=== PATIENT | female | born 2000 | race Caucasian/White ===

== ENCOUNTER 2021-05-22 17:32 | Emergency (ER) | payer OTHER ==
[~2021-05-22] VITALS: Ht 167.6 cm; Wt 65.9 kg
[2021-05-22] MEDS ORDERED: MULTTAB20 PO (17:39)
[2021-05-22 20:11] LABS: BASO # 0.1 10^3/uL (0.0-0.2); BASO % 0.6 % (0.0-1.0); EOS # 0.1 10^3/uL (0.0-0.5); EOS % 1.3 % (0.0-3.0); HEMATOCRIT 38.5 % (36.0-47.0); HEMOGLOBIN 12.6 g/dl (12.0-15.5); LYMPH # 2.9 10^3/uL (1.5-5.0); LYMPH % 28.8 % (24.0-44.0); MEAN CORPUSCULAR HEMOGLOBIN 27.4 pg (27.0-33.0); MEAN CORPUSCULAR HGB CONC 32.7 g/dl (32.0-36.5); MEAN CORPUSCULAR VOLUME 83.7 fl (80.0-96.0); MONO # 0.6 10^3/uL (0.0-0.8); MONO % 6.1 % (2.0-8.0); NEUTROPHILS # 6.4 10^3/uL (1.5-8.5); NEUTROPHILS % 62.9 % (36.0-66.0); PLATELET COUNT, AUTOMATED 217 10^3/uL (150-450); WHITE BLOOD COUNT 10.2 10^3/uL (4.0-10.0)
[2021-05-22 20:32] LABS: BLOOD UREA NITROGEN 10 MG/DL (7-18); CALCIUM LEVEL 9.4 MG/DL (8.5-10.1); CARBON DIOXIDE LEVEL 25 MEQ/L (21-32); CHLORIDE LEVEL 105 MEQ/L (98-107); CREATININE FOR GFR 0.57 MG/DL (0.55-1.30); GLUCOSE, FASTING 75 MG/DL (70-100); POTASSIUM SERUM 4.2 MEQ/L (3.5-5.1); SODIUM LEVEL 137 MEQ/L (136-145)
[2021-05-22 22:29] LABS: HCG, SERUM QUANTITATIVE 170911 MIU/ML
[2021-05-22 23:49] LABS: GC DNA AMPLIFICATION NEGATIVE (NEGATIVE)
[2021-05-23 00:02] VITALS: BP 124/62
== END 2021-05-23 00:25 | disposition home or self-care (01) ==
LOC: M ED 17:32
DX: R10.9 Unspecified abdominal pain (principal); O99.011 Anemia complicating pregnancy, first trimester; Z3A.13 13 weeks gestation of pregnancy

== ENCOUNTER 2021-12-01 16:41 | Outpatient (CLI) | payer OTHER ==
[~2021-12-01] VITALS: Ht 167.6 cm; Wt 83.3 kg
[~2021-12-01 16:41] MED LIST: METR-265 PO; MULTTAB20 PO
[2021-12-01 17:06] VITALS: BP 135/67
[2021-12-01] MEDS ORDERED: HOME MED LIST COMPLETE! XX SCH (18:05)
[2021-12-01] MEDS ORDERED: VALT1TAB PO (18:06)
[2021-12-01] MEDS ORDERED: metroNIDAZOLE 70 GM VAGINAL GEL PV SCH (21:00)
== END 2021-12-01 19:04 | disposition home or self-care (01) ==
LOC: M LDO 16:41
PROVIDERS: ATTEND Registered Nurse
DX: O23.593 Infection of other part of genital tract in pregnancy, third trimester (principal); O48.0 Post-term pregnancy; Z3A.40 40 weeks gestation of pregnancy
CPT/HCPCS: 59025; G0463

== ENCOUNTER 2021-12-07 09:05 | Inpatient (IN) | payer OTHER ==
[~2021-12-07] VITALS: Ht 167.6 cm; Wt 83.3 kg
[2021-12-07] VITALS (17 sets, daily range): BP systolic 118–146; BP diastolic 63–91
[~2021-12-07 09:05] MED LIST changes: +VALT1TAB PO
[2021-12-07] MEDS ORDERED: CARBOPROST TROMETHAMINE 250 MCG/ML AMP IM PRN (10:50)
[2021-12-07] MEDS ORDERED: OXYTOCIN DRIP 30 UNITS in IV 1 EA IV PRN ×6 (10:50)
[2021-12-07] MEDS ORDERED: METHYLERGONOVINE MALEATE 0.2 MG/ML VIAL (J2210) IM PRN (10:50)
[2021-12-07] MEDS ORDERED: OXYTOCIN INJ 10 UNITS/ML VIAL (J2590) IM PRN (10:50)
[2021-12-07] MEDS ORDERED: OXYTOCIN INJ 10 UNITS/ML VIAL (J2590) IV PRN (10:50)
[2021-12-07] MEDS ORDERED: LR 1,000 ML IV SCH ×2 (10:50)
[2021-12-07] MEDS ORDERED: LACTATED RINGER'S 1000 ML IV STA (10:50)
[2021-12-07] MEDS ORDERED: LIDOCAINE 1% MDV 20ML VIAL INFIL PRN (10:50)
[2021-12-07] MEDS ORDERED: TRANEXAMIC ACID INJection 1,000 MG in NS 100 ML IV PRN (10:50)
[2021-12-07] MEDS ORDERED: OXYTOCIN DRIP 30 UNITS in IV 1 EA IV SCH (10:50)
[2021-12-07] MEDS ORDERED: PENICILLIN G POTASSIUM IV 5 MU in D5W MINI-BAG PLUS 100 ML IV STA (10:50)
[2021-12-07 11:21] LABS: HEMATOCRIT 40.6 % (36.0-47.0); HEMOGLOBIN 13.9 g/dl (12.0-15.5); MEAN CORPUSCULAR HEMOGLOBIN 30.2 pg (27.0-33.0); MEAN CORPUSCULAR HGB CONC 34.2 g/dl (32.0-36.5); MEAN CORPUSCULAR VOLUME 88.1 fl (80.0-96.0); PLATELET COUNT, AUTOMATED 179 10^3/uL (150-450); RED BLOOD COUNT 4.61 10^6/uL (4.00-5.40); WHITE BLOOD COUNT 13.1 10^3/uL (4.0-10.0)
[2021-12-07] MEDS ORDERED: PENICILLIN G POTASSIUM IV 2.5 MU in IV 1 EA IV SCH ×2 (14:50→19:30)
[2021-12-07] MEDS ORDERED: diphenhydrAMINE 50MG/ML VIAL (J1200) IV PRN (17:40)
[2021-12-07] MEDS ORDERED: ePHEDrine SULFATE 25 MG/5 ML(5MG/ML) SYRINGE IVP PRN (17:40)
[2021-12-07] MEDS ORDERED: EPIDURAL/PCA KEYS XX PRN (17:40)
[2021-12-07] MEDS ORDERED: ONDANSETRON 4MG 2ML VIAL IV PRN (17:40)
[2021-12-07] MEDS ORDERED: FENTANYL/ROPIVACAINE/NACL BAG 100 ML EPIDURAL SCH (17:40)
[2021-12-07] MEDS ORDERED: LR 500 ML IV PRN (17:40)
[2021-12-07] MEDS ORDERED: NALOXONE INJ 0.4MG/1ML VIAL (J2310 PER 1MG) IV PRN (17:40)
[2021-12-07] MEDS ORDERED: FENTANYL 2MCG/ML ROPIVACAINE 0.2% IN 0.9% NACL 100ML IVBAG As Ordered ONE (17:45)
[2021-12-07] MEDS ORDERED: **PENDING PCN ENTRY XX SCH (21:00)
[2021-12-07] MEDS ORDERED: DIBUCAINE 1% OINTMENT 30GM TOP PRN (23:10)
[2021-12-07] MEDS ORDERED: IBUPROFEN 800 MG TAB PO PRN (23:10)
[2021-12-07] MEDS ORDERED: RHOGAM 300 MCG (1500 IU) INJ (J2790) IM SCH (23:10)
[2021-12-07] MEDS ORDERED: ACETAMINOPHEN 500 MG TAB PO PRN (23:10)
[2021-12-07] MEDS ORDERED: MOM 30ML SUSPENSION UDC PO PRN (23:10)
[2021-12-07] MEDS ORDERED: DOCUSATE SODIUM 100MG CAPSULE PO PRN (23:10)
[2021-12-07 23:11] LABS: CORD GAS ABE A -7.5; CORD GAS ABE V -9.7; CORD GAS HCO3 A 18.8 MEQ/L; CORD GAS HCO3 V 16.3 MEQ/L; CORD GAS O2 SAT A 53.5 %; CORD GAS O2 SAT V 56.4 %; CORD GAS PCO2 A 40.8 mmHg; CORD GAS PCO2 V 36.1 mmHg; CORD GAS PH A 7.281 UNITS; CORD GAS PH V 7.272 UNITS; CORD GAS PO2 A 25.4 mmHg; CORD GAS PO2 V 25.8 mmHg; CORD GAS SBC A 17.5 MEQ/L; CORD GAS TCO2 V 17.4 MEQ/L
[2021-12-08 00:12] VITALS: BP 141/77
[2021-12-08 06:10] VITALS: BP 122/73
[2021-12-08] MEDS ORDERED: PRENATAL VITAMINS CHEWABLE TABLET PO SCH (09:00)
[2021-12-08] MEDS ORDERED: PRENCHW PO (15:48)
[2021-12-08] MEDS ORDERED: IBUP80TA PO (15:48)
[2021-12-08] MEDS ORDERED: COLA100C5 PO (15:48)
[2021-12-09] MEDS ORDERED: MEASLES,MUMPS,RUBELLA VACCINE INJ (MMR-II) (90707) SC.IMMUN ONE (09:00)
== END 2021-12-08 17:10 | disposition home or self-care (01) | DRG 807 ==
LOC: M LDI 09:05 → M OBS 12-08 00:39
PROVIDERS: ADMIT Obstetrics & Gynecology; ATTEND Obstetrics & Gynecology
PROC: 10D17Z9 Manual Extraction of Products of Conception, Retained, Via Natural or Artificial Opening (ICD-10-PCS; principal; 2021-12-07)
PROC: 10E0XZZ Delivery of Products of Conception, External Approach (ICD-10-PCS; 2021-12-07)
DX: O48.0 Post-term pregnancy (principal); Z37.0 Single live birth; Z3A.41 41 weeks gestation of pregnancy; O99.824 Streptococcus B carrier state complicating childbirth; O73.0 Retained placenta without hemorrhage